=== PATIENT | female | born 1980 | race Two or more races ===

== ENCOUNTER 2018-11-10 20:15 | Emergency (ER) | payer BC ==
[2018-11-10] MEDS ORDERED: METHYLPREDNISOLONE 80MG/VIAL IM ONE (20:41)
--- NOTE | 2018-11-10 20:48 | Emergency Department Record ---
History of Present Illness - General Chief complaint: Hives Stated complaint: HIVES Time Seen by Provider: 11/10/18 20:34 Source: Patient Mode of Arrival: Ambulatory Limitations: No limitations - History of Present Illness Initial comments: 38 yo female presents with recurrent hives. Two weeks ago she was diagnosed with bronchitis with hives. She was treated with Zithromax and steroids. She stopped the prednisone and the hives returned. No lip swelling, tongue or throat symptoms. No significant history of allergic reactions. She does get seasonal allergies. Onset/Timin -: Days(s) Hx Tetanus Toxoid Vaccination: No Patient Tetanus UTD (within 5 yrs): No Location: Chest, Genitals Severity: Moderate Severity scale (1-10): 6 Quality: Other Consistency: Constant, Getting worse Improves with: Medication Worsens with: Movement, Other Context: Other Associated symptoms: Itching Treatments Prior to Arrival: Corticosteroid - Related Data Previous Rx's Medication Instructions Recorded Cetirizine HCl [Zyrtec] 10 mg PO DAILY #30 cap 11/10/18 Methylprednisolone [Medrol Dose 0 mg PO DAILY #1 tab.ds.pk 11/10/18 Pack] Ranitidine HCl [Zantac] 150 mg PO BID #30 tablet 11/10/18 Allergies Allergy/AdvReac Type Severity Reaction Status Date / Time Penicillins Allergy SWELLING Verified 11/10/18 20:26 (GENERAL) Travel Screening - Travel/Exposure Within Last 30 Days Have you traveled within the last 30 days?: No - Travel Symptoms Symptom Screening: None Review of Systems Constitutional: Denies: Chills, Fever, Malaise, Weakness Eyes: Denies: Eye discharge ENT: Denies: Congestion, Ear pain, Throat pain Respiratory: Reports: Cough. Denies: Dyspnea, Hemoptysis, Stridor, Wheezes Cardiovascular: Denies: Chest pain, Palpitations, Syncope Endocrine: Denies: Fatigue Gastrointestinal: Denies: Abdominal pain, Diarrhea, Nausea, Vomiting Genitourinary: Denies: Dysuria Musculoskeletal: Denies: Arthralgia, Back pain, Myalgia Skin: Reports: Pruritus, Other (Hives). Denies: Bruising, Change in color, Rash Neurological: Denies: Headache Psychiatric: Denies: Anxiety Hematological/Lymphatic: Denies: Easy bleeding, Easy bruising Past Medical History - SOCIAL HISTORY Smoking Status: Never smoker Alcohol Use: None Drug Use: None - RESPIRATORY Hx Respiratory Disorders: No - CARDIOVASCULAR Hx Cardio Disorders: No - NEURO Hx Neuro Disorders: No - GI Hx GI Disorders: No - Hx Genitourinary Disorders: No - ENDOCRINE Hx Endocrine Disorders: No - MUSCULOSKELETAL Hx Musculoskeletal Disorders: No - PSYCH Hx Psych Problems: No - HEMATOLOGY/ONCOLOGY Hx Hematology/Oncology Disorders: No Family Medical History Any Significant Family History?: No Family Hx Comment (NOT TO BE USED IN PLACE OF ITEMS BELOW): denies Physical Exam - General General Appearance: Alert, Oriented x3, Cooperative, No acute distress Limitations: No limitations - Head Head exam: Atraumatic, Normocephalic, Normal inspection - Eye Eye exam: Normal appearance, PERRL. negative: Conjunctival injection, Scleral icterus - ENT ENT exam: Normal exam, Mucous membranes moist, Normal orophraynx Ear exam: Normal external inspection Nasal Exam: Normal inspection Mouth exam: Normal external inspection Teeth exam: Normal inspection Throat exam: Normal inspection - Neck Neck exam: Full ROM. negative: Normal inspection (few scattered hives), Lymphadenopathy - Respiratory Respiratory exam: Normal lung sounds bilaterally. negative: Rhonchi, Stridor, Wheezes - Cardiovascular Cardiovascular Exam: Regular rate, Normal rhythm, Normal heart sounds - GI/Abdominal GI/Abdominal exam: Soft. negative: Tenderness - Rectal Rectal exam: Deferred - exam: Deferred - Extremities Extremities exam: Other (Hives in the AC fossa and axilla). negative: Normal inspection - Back Back exam: Reports: Normal inspection (No hives) - Neurological Neurological exam: Alert, Oriented X3 - Psychiatric Psychiatric exam: Normal affect, Normal mood - Skin Skin exam: Urticaria Course Vital Signs 11/10/18 20:21 Temperature 98.9 F Pulse Rate [ 113 H Left] Respiratory 18 Rate Blood Pressure 130/92 [Left Arm] Pulse Ox 99 - Reevaluation(s) Reevaluation #1: The patient has a few scattered hives. We discussed treatment with a tapering dose of Medrol, Zyrtec, Benadryl, and Zantac We discussed reasons to return to the ED and close follow up She has an appointment with a new PCP but not until 11/10/18 22:27 Disposition Disposition: Discharge Clinical Impression: Hives Disposition: Home, Self-Care Condition: (1) Good Instructions: Urticaria (ED) Additional Instructions: Call your doctor for the next available follow up appointment Return to the ER for a recheck if worse, any new concerns or questions Take the prescriptions provided as directed Take Benadryl over the counter every 4-6 hours as well Review this ER visit and the tests performed with your family doctor Prescriptions: Cetirizine HCl [Zyrtec] 10 mg PO DAILY #30 cap Methylprednisolone [Medrol Dose Pack] 0 mg PO DAILY #1 tab.ds.pk Ranitidine HCl [Zantac] 150 mg PO BID #30 tablet Forms: Patient Portal Access Time of Disposition: 20:48 Quality - Quality Measures Quality Measures: N/A - Blood Pressure Screening Does Patient Have Any of the Following: No Blood Pressure Classification: Pre-Hypertensive BP Reading Systolic Measurement: 112 Diastolic Measurement: 88 Screening for High Blood Pressure: < Pre-Hypertensive BP, F/U Documented > [ G8950] Pre-Hypertensive Follow-up Interventions: Referral to alternative/primary care provider.
== END 2018-11-10 21:15 | disposition home or self-care (01) ==
LOC: ER 20:15
DX: L50.9 Urticaria, unspecified (principal)
CPT/HCPCS: 96372; 99282; 99283; J1040

== ENCOUNTER 2018-11-16 20:41 | Emergency (ER) | payer BC ==
--- NOTE | 2018-11-16 21:30 | Emergency Department Record ---
History of Present Illness - General Chief complaint: Rash Stated complaint: RASH Time Seen by Provider: 11/16/18 20:46 Source: Patient Mode of Arrival: Ambulatory Limitations: No limitations - History of Present Illness Initial comments: The patient has had an urticarial rash with itching for about 16 days. After the onset she did develop a presumed viral URI. She went to an and had a neg flu swab and was placed on a Zpak. She additionally was placed on antihistamines and oral steroids which did cause the hives to resolve. Once the steroids were done the hives returned so she came here to the ER 6 days ago and was placed an a Medrol Dose pack which again caused the rash to resolve. Now she is on her last day and the hives are returning. Additionally today she has been having intermittent upper chest "pressure". She states it feels like there is a lump in her upper chest at times. The pressure comes and goes and was constant for an hour or two this afternoon. She denies any SOB, ESTEBAN, sweating, nausea, or pleuritic type pain with the pressure. The symptoms are not worse with exertion or eating. The patient has no hx of any cardiac issues and no hx of CP with exertion. Her only cardiac risk factor is a hx of mild tobacco use. The patient is attributing the chest pressure to anxiety due to feeling anxious about the hives. MD complaint: Rash Onset/Timin -: Days(s) Hx Tetanus Toxoid Vaccination: No Location: Generalized Severity: Mild Severity scale (1-10): 7 Quality: Other Consistency: Constant, Getting worse Improves with: Medication Worsens with: None Context: None Associated symptoms: Other Treatments Prior to Arrival: Benadryl, Corticosteroid - Related Data Previous Rx's Medication Instructions Recorded Cetirizine HCl [Zyrtec] 10 mg PO DAILY #30 cap 11/10/18 Methylprednisolone [Medrol Dose 0 mg PO DAILY #1 tab.ds.pk 11/10/18 Pack] Ranitidine HCl [Zantac] 150 mg PO BID #30 tablet 11/10/18 Prednisone [Prednisone 20Mg] 20 mg PO ASDIR #15 tab 11/16/18 Allergies Allergy/AdvReac Type Severity Reaction Status Date / Time Penicillins Allergy SWELLING Verified 11/10/18 20:26 (GENERAL) Travel Screening - Travel/Exposure Within Last 30 Days Have you traveled within the last 30 days?: No - Travel/Exposure Within Last Year Have you traveled outside the [place] in the last year?: No - Additonal Travel Details Have you been exposed to anyone with a communicable illness?: No - Travel Symptoms Symptom Screening: None Review of Systems Constitutional: Denies: Chills, Fever Eyes: Denies: Eye discharge ENT: Denies: Congestion Respiratory: Denies: Cough, Dyspnea Cardiovascular: Denies: Arrhythmia, Chest pain, Dyspnea on exertion, Syncope Endocrine: Denies: Fatigue Gastrointestinal: Denies: Nausea Genitourinary: Denies: Dysuria Musculoskeletal: Denies: Arthralgia Skin: Reports: Rash Past Medical History - SOCIAL HISTORY Smoking Status: Light tobacco smoker (<10/day) Alcohol Use: Rare Drug Use: None - RESPIRATORY Hx Respiratory Disorders: No - CARDIOVASCULAR Hx Cardio Disorders: No - NEURO Hx Neuro Disorders: No - GI Hx GI Disorders: No - Hx Genitourinary Disorders: No - ENDOCRINE Hx Endocrine Disorders: No - MUSCULOSKELETAL Hx Musculoskeletal Disorders: No - PSYCH Hx Psych Problems: No - HEMATOLOGY/ONCOLOGY Hx Hematology/Oncology Disorders: No Family Medical History Any Significant Family History?: No Family Hx Comment (NOT TO BE USED IN PLACE OF ITEMS BELOW): denies Physical Exam - General General Appearance: Alert, Oriented x3, Cooperative, No acute distress - Head Head exam: Atraumatic, Normal inspection - Eye Eye exam: Normal appearance, PERRL. negative: Conjunctival injection - ENT Throat exam: Normal inspection. negative: Tonsillar erythema, Tonsillar exudate - Neck Neck exam: Normal inspection, Full ROM. negative: Tenderness - Respiratory Respiratory exam: Normal lung sounds bilaterally. negative: Respiratory distress - Cardiovascular Cardiovascular Exam: Regular rate, Normal rhythm, Normal heart sounds. negative : Diastolic murmur, Systolic murmur - GI/Abdominal GI/Abdominal exam: Soft, Normal bowel sounds. negative: Tenderness - Extremities Extremities exam: Normal inspection, Full ROM, Normal capillary refill. negative: Tenderness - Neurological Neurological exam: Alert. negative: Motor sensory deficit - Skin Skin exam: Urticaria (There is a scattered urticarial rash to the arms and trunk mainly. There is no palpable purpuric or petechial lesions.) Course Vital Signs 11/16/18 20:48 Temperature 98.7 F Pulse Rate [ 66 Pulse Ox Probe] Respiratory 20 Rate Blood Pressure 125/84 [Left Arm] Pulse Ox 100 - Reevaluation(s) Reevaluation #1: The patient is doing OK at this time but is still having some pruritis. I did offer her a Benadryl shot but due to the fact she has to drive home I am unable to do that. She is to continue the Prednisone tomorrow and to f/u as directed. I did discuss the "chest pressure" with her that is not associated with any SOB , ESTEBAN, sweating, nausea or lightheadedness and is not exertional. The symptoms seem to be related to anxiety regarding her skin condition. The patient's Heart Score is 1 so I clearly feel it is safe discharging her home. Her symptoms are not related to exertion, are not pleuritic and her only cardiac risk factor is a mild hx of tobacco use. 11/16/18 22:25 Medical Decision Making - Data Complexity MDM Data: EKG Ordered and/or Reviewed - Lab Data Result diagrams: 11/16/18 21:27 11/16/18 21:27 - EKG Data -: EKG Interpreted by Me EKG: No Acute Changes (Sinus tach. O/W neg.) Disposition Disposition: Discharge Clinical Impression: Urticaria Disposition: Home, Self-Care Condition: (2) Stable Instructions: Urticaria (ED) Additional Instructions: Please continue the Prednisone tomorrow as directed and also continue the oral antihistamines. Please see an [employer] [employer] [facility] BENITA and also see your family doctor as planned. Return to the ER for any worsening symptoms, trouble breathing or any trouble swallowing. Prescriptions: Prednisone [Prednisone 20Mg] 20 mg PO ASDIR #15 tab Forms: Patient Portal Access Time of Disposition: 22:25 Quality - Quality Measures Quality Measures: N/A - Blood Pressure Screening View Details: Yes Does Patient Have Any of the Following: No Blood Pressure Classification: Pre-Hypertensive BP Reading Systolic Measurement: 125 Diastolic Measurement: 84 Screening for High Blood Pressure: < Pre-Hypertensive BP, F/U Documented > [ G8950] Pre-Hypertensive Follow-up Interventions: Referral to alternative/primary care provider.
[2018-11-16 21:33] LABS: HEMATOCRIT 43.3 % (35.0-47.0); MEAN CELL VOLUME 94.7 fl (81-97); MEAN CORPUSCULAR HEMOGLOBIN 32.8 pg (27-33); MEAN CORPUSCULAR HGB CONC 34.6 g/dl (32-36); MEAN PLATELET VOLUME 10.6 fl (7.4-10.4); PLATELET COUNT 323 K/uL (130-400); RED BLOOD COUNT 4.57 M/uL (3.80-5.40); RED CELL DISTRIBUTION WIDTH 13.2 % (11.5-14.5)
[2018-11-16 21:47] LABS: BLOOD UREA NITROGEN 16 mg/dL (6-20); CREATININE 0.8 mg/dL (0.5-0.9); EST GLOMERULAR FILTRATION RATE > 60 mL/min; TOTAL PROTEIN 7.2 g/dL (6.6-8.7)
[2018-11-16 21:49] LABS: GLUCOSE,RANDOM 149 mg/dL (74-109)
[2018-11-16] MEDS ORDERED: PREDNISONE 20 MG TAB PO ONE (21:50)
[2018-11-16 21:52] LABS: ALB/GLOB RATIO 1.6 (1.1-1.8); ALBUMIN 4.4 g/dL (4.0-5.0); ALKALINE PHOSPHATASE 48 U/L (35-104); ALT/SGPT 14 U/L (<33); AST/SGOT 12 U/L (10.0-35.0); CREATINE PHOSPHOKINASE 87 U/L (26-192)
[2018-11-16 21:54] LABS: CKMB < 1.0 ng/mL (<3.77)
== END 2018-11-16 22:31 | disposition home or self-care (01) ==
LOC: ER 20:41
DX: L50.9 Urticaria, unspecified (principal); R07.89 Other chest pain; F17.210 Nicotine dependence, cigarettes, uncomplicated
CPT/HCPCS: 99284 ×2; 82550; 82553; 80053; 84484; 85027; 93005; 93010; J7512

== ENCOUNTER 2019-03-09 21:37 | Emergency (ER) | payer BC ==
[2019-03-09] MEDS ORDERED: HYDROCODONE/APAP 5/325MG TABLET PO ONE ×2 (22:00→23:10)
[2019-03-09] MEDS ORDERED: CYCLOBENZAPRINE 10MG TABLET PO ONE (22:00)
--- NOTE | 2019-03-09 22:06 | Emergency Department Record ---
History of Present Illness - General Stated Complaint: FALL/HIT BACK ON STEP Time Seen by Provider: 03/09/19 22:00 Source: Patient Mode of Arrival: Ambulatory Limitations: No limitations - History of Present Illness Initial Comments: 38 yo female presents with back pain after a fall yesterday. She reports she was stepping out of her camping wearing flip flops. She mis-stepped and landed on the steps hitting her back. The pain has gradually increased since then. No head or neck injury or pain. She mildly hurt her left wrist as well. She has full ROM without limitation. No weakness, numbness or tingling. MD Complaint: Fall -: Days(s) (1) Fall From: Other (Fell out of camper) When Fall Occurred: # Days [employer] (1) Fall Witnessed: Yes, by family Place Fall Occurred: Other ([facility]) Loss of Consciousness: None Prolonged Down Time?: No Symptoms Prior to Fall: None Location: Back Severity: Moderate Quality: Aching, Sharp, Stabbing Context: Other Associated Symptoms: Denies - Michelle Coma Scale Eye Response: (4) Open spontaneously Motor Response: (6) Obeys commands Verbal Response: (5) Oriented Michelle Total: 15 - Related Data Previous Rx's Medication Instructions Recorded Cetirizine HCl [Zyrtec] 10 mg PO DAILY #30 cap 11/10/18 Ranitidine HCl [Zantac] 150 mg PO BID #30 tablet 11/10/18 Cyclobenzaprine HCl [Flexeril] 10 mg PO TID #15 tablet 03/09/19 Allergies Allergy/AdvReac Type Severity Reaction Status Date / Time Penicillins Allergy SWELLING Verified 11/10/18 20:26 (GENERAL) Review of Systems Constitutional: Denies: Chills, Fever, Malaise, Weakness Eyes: Denies: Eye discharge ENT: Denies: Congestion, Throat pain Cardiovascular: Denies: Chest pain, Palpitations, Syncope Endocrine: Denies: Fatigue, Polydipsia, Polyuria Gastrointestinal: Denies: Abdominal pain, Diarrhea, Nausea, Vomiting Genitourinary: Denies: Dysuria, Urgency Musculoskeletal: Reports: Back pain, Myalgia. Denies: Arthralgia Skin: Denies: Bruising, Change in color, Rash Neurological: Denies: Headache Psychiatric: Denies: Anxiety Hematological/Lymphatic: Denies: Easy bleeding, Easy bruising Past Medical History - SOCIAL HISTORY Smoking Status: Light tobacco smoker (<10/day) Drug Use: None - RESPIRATORY Hx Respiratory Disorders: No - CARDIOVASCULAR Hx Cardio Disorders: No - NEURO Hx Neuro Disorders: No - GI Hx GI Disorders: No - Hx Genitourinary Disorders: No - ENDOCRINE Hx Endocrine Disorders: No - MUSCULOSKELETAL Hx Musculoskeletal Disorders: No - PSYCH Hx Psych Problems: No - HEMATOLOGY/ONCOLOGY Hx Hematology/Oncology Disorders: No Family Medical History Family Hx Comment (NOT TO BE USED IN PLACE OF ITEMS BELOW): denies Physical Exam - General General Appearance: Alert, Oriented x3, Cooperative, No acute distress Limitations: No limitations - Head Head exam: Atraumatic - Eye Eye exam: Normal appearance. negative: Conjunctival injection - ENT ENT exam: Normal exam Ear exam: Normal external inspection Nasal Exam: Normal inspection Mouth exam: Normal external inspection - Neck Neck exam: Normal inspection - Respiratory Respiratory exam: Normal lung sounds bilaterally. negative: Respiratory distress - Cardiovascular Cardiovascular Exam: Regular rate, Normal rhythm, Normal heart sounds Peripheral Pulses: 2+: Radial (R), Radial (L) - GI/Abdominal GI/Abdominal exam: Soft. negative: Distended, Guarding, Rebound, Rigid, Tenderness - Rectal Rectal exam: Deferred - exam: Deferred - Extremities Extremities exam: Normal inspection, Full ROM, Normal capillary refill, Other (The wrist is minimally tender, no deformity, normal ROM). negative: Joint swelling, Tenderness Image of Full Body: 1 - tender to palpation, no crepitus or palpable abnormality - Back Back exam: Reports: Normal inspection, Paraspinal tenderness (thoracic). Denies: CVA tenderness (R), CVA tenderness (L) - Neurological Neurological exam: Alert, Normal gait, Oriented X3, Reflexes normal - Psychiatric Psychiatric exam: Normal affect, Normal mood - Skin Skin exam: Dry, Intact, Normal color, Warm Course Vital Signs 03/09/19 21:52 Temperature 98.6 F Pulse Rate [ 67 Pulse Ox Probe] Respiratory 20 Rate Blood Pressure 119/80 [Left Arm] Pulse Ox 99 - Reevaluation(s) Reevaluation #1: The wrist findings are mild. I offered an XR. The patient declined. She will follow up with her hand surgeon in 3-4 days if any pain She wears a wrist splint that was encouraged to continue 03/09/19 22:08 03/09/19 23:[address] from [facility] is negative We discussed the results. DC home with home care instructions We discussed reasons for close follow up and reasons for immediate return to the ED Disposition Disposition: Discharge Clinical Impression: Contusion, back Qualifiers: Encounter type: initial encounter Laterality: left Qualified Code(s): S20.222A - Contusion of left back wall of thorax, initial encounter Disposition: Home, Self-Care Condition: (1) Good Instructions: Thoracic Back Strain (ED) Additional Instructions: Call your doctor for the next available follow up appointment Review this ER visit and the tests performed with your family doctor Return to the ER for a recheck if worse, any new concerns or questions Take the prescriptions provided as directed Prescriptions: Cyclobenzaprine HCl [Flexeril] 10 mg PO TID #15 tablet Time of Disposition: 23:06 Quality - Quality Measures Quality Measures: N/A - Blood Pressure Screening Does Patient Have Any of the Following: No Blood Pressure Classification: Pre-Hypertensive BP Reading Systolic Measurement: 119 Diastolic Measurement: 80 Screening for High Blood Pressure: < Pre-Hypertensive BP, F/U Documented > [G8950] Pre-Hypertensive Follow-up Interventions: Referral to alternative/primary care provider.
--- NOTE | 2019-03-11 05:50 | CT SCAN REPORT ---
EXAM: EMERGENCY CT OF THE CHEST WITHOUT CONTRAST HISTORY: PATIENT FELL YESTERDAY WITH PAIN IN THE REGION OF THE RIGHT POSTERIOR RIBS. TECHNIQUE: Axial CT scan of the entire chest was performed without IV contrast. A preliminary report was provided by [facility]. Comparison: None. Encounter: Initial. FINDINGS: No pneumothorax is evident. No acute infiltrate seen within either lung. Somewhat limited evaluation of the ruth and mediastinal structures, but no definite hilar or mediastinal adenopathy is seen. No pericardial effusion seen aside from a small amount of fluid in the superior pericardial recess. No pleural effusion evident on either side. The heart size is normal. The visualized upper abdomen appears unremarkable. There is a bifid anterior end of the right fourth rib which is just a developmental variant. No definite acute rib fracture identified. IMPRESSION: 1. NO PNEUMOTHORAX OR ACUTE INFILTRATE EVIDENT. 2. NO DEFINITE RIB FRACTURE IDENTIFIED. 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 JOB NUMBER: [id number] MTDD
== END 2019-03-09 23:25 | disposition home or self-care (01) ==
LOC: ER 21:37
DX: S20.222A Contusion of left back wall of thorax, initial encounter (principal); F17.210 Nicotine dependence, cigarettes, uncomplicated; W17.89XA Other fall from one level to another, initial encounter; Y93.9 Activity, unspecified; Y92.89 Other specified places as the place of occurrence of the external cause
CPT/HCPCS: 71250; 99283